=== PATIENT | male | born 1960 | race Two or more races ===

== ENCOUNTER 2025-02-19 08:12 | Emergency (ER) | payer MEDICAID, SELFPAY ==
[2025-02-19 08:29] VITALS: BP 138/84; PULSE 74; RESP 16; TEMP 36.9; O2SAT 95; BMI 36.0
--- NOTE | 2025-02-19 08:36 | XR_ITS ---
Examination: Abdomen sonogram, Limited Date and time of exam: February 19, 2025 0858 hours INDICATIONS: Right upper abdominal pain beginning 2 days ago Technique: Real-time booth scale transabdominal sonographic images of the upper abdomen obtained. Findings: Absent gallbladder Common bile duct 0.28 cm Pancreas obscured by bowel gas Liver 18.8 cm fatty infiltration Normal hepatopedal portal venous flow Patent IVC Right renal cyst 37 mm IMPRESSION: Absent gallbladder Normal common bile duct Moderate hepatomegaly, fatty liver
--- NOTE | 2025-02-19 08:37 | PD.EDRME ---
Rapid Medical Screening Exam RME Arrival date/time: 02/19/25 08:12 64-year-old male with no known medical history presents to the emergency room with a chief complaint of right upper quadrant abdominal pain and tenderness x 3 days I have greeted and performed a focused initial assessment of this patient. A comprehensive ED assessment and evaluation of the patient, analysis of all test results, and completion of the medical decision making process will be conducted by additional ED providers. Chief Complaint: Abdominal Pain Time Seen by Provider: 02/19/25 08:13 Vital signs: Vital Signs Temperature 98.4 F 02/19/25 08:29 Pulse Rate 74 02/19/25 08:29 Respiratory Rate 16 02/19/25 08:29 Blood Pressure 138/84 H 02/19/25 08:29 Pulse Oximetry (%) 95 02/19/25 08:29 Oxygen Delivery Method Room Air 02/19/25 08:29 Vital signs reviewed by provider: Yes
[2025-02-19] MEDS: HYDROcodone/APAP 5/325 TABLET 1 TAB PO (08:49)
[2025-02-19] MEDS: MG HYD/AL HYD/SIME (Maalox Reg) SUSP 30 ML UDC PO (08:49)
[2025-02-19 09:01] LABS: Collection Type, Urine Clean Catch
[2025-02-19 09:16] LABS: Bacteria,Urine Rare; Bilirubin,Urine Negative (Negative); Blood,Urine Negative (Negative); Clarity,Urine Clear (Clear/Hazy); Color,Urine Yellow (Lt Yel-Yel); Glucose, Urine Negative (Negative); Ketones,Urine Negative (Negative); Leukocyte Esterase,Urine Negative (Negative); Nitrite,Urine Negative (Negative); PH,Urine 5.5 (5.0-7.0); Protein,Urine Negative (Neg - Trace); RBC,Urine 5 /hpf (0-3); Specific Gravity,Urine 1.025 (1.001-1.035); Squamous Epithelial Cell,Urine 1 /hpf (0-5); Urobilinogen,Urine Negative mg/dL (0.0-1.0); WBC,Urine 1 /hpf (0-5)
[2025-02-19 10:22] LABS: Basophils % (Auto) 1 % (0-2.5); Eosinophils # (Auto) 0.2 Thou/mm3 (0.0-0.5); Eosinophils % (Auto) 4 % (0-10); Hematocrit 43.8 % (41.0-53.0); Hemoglobin 15.4 g/dL (13.5-16.0); Immature Granulocytes % (Auto) 0 % (0-0); Immature Granulocytes Auto 0.02 Thou/mm3 (0.00-0.00); Lymphocytes # (Auto) 1.7 Thou/mm3 (1.0-4.8); Lymphocytes % (Auto) 27 % (10-50); Mean Corpuscular HGB Conc 35.2 g/dl (31.0-37.0); Mean Corpuscular Hemoglobin 29.6 pg (25.0-35.0); Mean Corpuscular Volume 84 fL (80-100); Monocytes # (Auto) 0.6 Thou/mm3 (0.0-0.8); Monocytes % (Auto) 9 % (0-12); Neutrophils # (Auto) 3.8 Thou/mm3 (1.8-7.7); Neutrophils % (Auto) 60 % (37-80); Nucleated Red Blood Cell % 0 /100 WBC (0); Platelet Count 266 Thou/mm3 (140-440); RDW Standard Deviation 42.7 fL (35.1-43.9); Red Blood Count 5.21 Miln/mm3 (4.50-5.90); White Blood Count 6.4 Thou/mm3 (3.8-10.6)
[2025-02-19 10:41] LABS: Alanine Aminotransferase 40 U/L (10-49); Albumin, Serum 4.5 gm/dL (3.4-4.8); Albumin/Globulin Ratio 1.7 (1.2-2.2); Alkaline Phosphatase 94 U/L (46-116); Anion Gap 10 (7-16); Aspartate Amino Transferase 22 U/L (0-34); BUN/Creatinine Ratio 10 Ratio (12-20); Bilirubin,Total 0.6 mg/dL (0.3-1.2); Blood Urea Nitrogen 10 mg/dL (9-23); Calcium 8.9 mg/dL (8.3-10.6); Calcium (Corrected) 8.9 mg/dL (8.5-10.1); Carbon Dioxide 27.1 mMol/L (20.0-31.0); Chloride 103 mMol/L (98-107); Estimated Creatinine Clearance 105.8 mL/min (>60); Globulin 2.6 gm/dL (2.3-3.5); Glucose 197 mg/dL (74-106); Lipase 47 U/L (12-53); Osmolality,Calculated 283 (275-295); Potassium 4.1 mMol/L (3.4-5.1); Sodium 140 mMol/L (136-145); Total Protein 7.1 gm/dL (5.7-8.2); eGFR > 60 See Note
[2025-02-19 11:02] VITALS: BP 131/92; PULSE 66; RESP 17; TEMP 36.8; O2SAT 97
--- NOTE | 2025-02-19 11:56 | XR_ITS ---
Examination: CT abdomen with intravenous contrast CT pelvis with intravenous contrast 2-D coronal reconstructions 2-D sagittal reconstructions Date and time of exam:February 19, 2025 1514 hours INDICATIONS: Onset right lower abdominal pain beginning 2 days ago. CTDI: vol (mGy) 18.7 DLP: (mGycm) 1367 Technique: Multiple axial sections of the abdomen and pelvis have been obtained. 64 slice high-resolution scanner used. 3 mm axial sections have been obtained, post intravenous injection 60 cc [id number] 2-D sagittal, coronal reconstructions obtained. Low dose protocols were performed. One or more of the following dose reduction techniques were used; automated exposure control, adjustment of the mA and/or KV according to patient size, use of iterative reconstruction technique. Findings: No focal liver or splenic lesions Absent gallbladder No pancreatic or adrenal mass 5.4 cm left renal cyst No renal or ureteral calculi, 4 cm right renal cyst Aorta normal size Normal appendix No bowel obstruction No significant prostatomegaly No bladder mass or bladder calculi Moderate osteopenia IMPRESSION: Bilateral benign renal cyst Normal appendix No bowel obstruction diverticulitis or free air
[2025-02-19 12:09] VITALS: BP 135/95; PULSE 71; RESP 20; TEMP 36.7; O2SAT 97
[2025-02-19] MEDS: ONDANSETRON INJ 2 MG/ML INJ 2 ML 4 MG IVP (12:23)
[2025-02-19] MEDS: SODIUM CHLORIDE 0.9% 1000 ML 1,000 ML 999 ML IV (12:25)
[2025-02-19] MEDS: MORPHINE SULF INJ 10 MG/ML VIAL 4 MG IVP (12:26)
[2025-02-19 14:00] VITALS: BP 146/108; PULSE 71; RESP 20; TEMP 36.8; O2SAT 95
--- NOTE | 2025-02-19 14:51 | PD.EDABDPN ---
ED Abdominal Pain RME/HPI General Chief Complaint: Abdominal Pain Stated complaint: ABD PAIN Time seen by provider: 02/19/25 08:13 Arrival date/time: 02/19/25 08:12 Limitations: no limitations RME / HPI RME / HPI narrative: 02/19/25 08:12 64-year-old male with no known medical history presents to the emergency room with a chief complaint of right upper quadrant abdominal pain and tenderness x 3 days I have greeted and performed a focused initial assessment of this patient. A comprehensive ED assessment and evaluation of the patient, analysis of all test results, and completion of the medical decision making process will be conducted by additional ED providers. DR. JACOBSON MAIN ED EVALUATION: 64 year old male with history of diabetes presents to the ED with a 2 day history of abdominal pain. The pain is described as a dull, aching sensation localized primarily to the right side of the abdomen, without radiation. States pain is aggravated with movements and minimally improved with rest. Rating the pain as moderate in severity. The patient reports having eaten well yesterday but has not eaten today. He denies any prior episodes of similar pain. He also denies associated symptoms such as nausea, vomiting, changes in bowel habits or stool color, urinary symptoms, fever, chills, diaphoresis, shortness of breath, or leg pain or weakness. Related Data Previous Rx's ?Medication ?Instructions ?Recorded cyclobenzaprine 5 mg tablet 5 mg PO Q12H #10 tabs 09/16/20 ibuprofen 800 mg tablet 800 mg PO Q8H PRN pain #10 tabs 09/16/20 lactulose 10 gram/15 mL oral 10 g (15 mL) PO QDAY PRN 10/26/23 solution constipation #237 mL Allergies Allergy/AdvReac Type Severity Reaction Status Date / Time No Known Allergies Allergy Verified 09/16/20 15:41 Review of Systems Review of Systems Narrative Review of Systems: GEN: No fever, no chills EYES: No discharge, no pain HEENT: No ear pain, no congestion, no sore throat PULM: No shortness of breath, no cough, no congestion CV: No chest pain, no palpitations GI: No nausea, no vomiting, no diarrhea, + pain, no constipation : No frequency, no urgency, no dysuria MUSC/SKEL: No joint pain, no back pain SKIN: No rash NEURO: No weakness, no headache Past Medical History Past Medical History CARDIAC: Negative Cardiac Disorders or Congestive Heart Failure RESPIRATORY: Negative Chronic Obstructive Pulmonary Disease (COPD) or Asthma GENITOURINARY: Negative Renal Disease ENDOCRINE: Positive Diabetes Mellitus Type 2; Negative Diabetes Mellitus Type 1 HEMATOLOGIC: Negative Sickle Cell Disease Social History SMOKING STATUS: Current some day smoker ED Exam General Limitations: Present no limitations General appearance: Present alert and in no apparent distress Head Head exam: Present atraumatic, normocephalic and normal inspection Eye Eye exam: Present normal appearance, PERRL and EOMI ENT ENT exam: Present normal exam, normal oropharynx and mucous membranes moist Neck Neck exam: Present normal inspection, full ROM and trachea midline Chest Chest inspection: Present normal inspection and symmetric chest wall rise Respiratory Respiratory exam: Present normal lung sounds bilaterally Cardiovascular Cardiovascular exam: Present regular rate, normal rhythm and normal heart sounds Abdominal Exam Abdominal exam: Present soft and normal bowel sounds Extremities Exam Extremities exam: Present normal inspection and full ROM Back Exam Back exam: Present normal inspection and full ROM Neurological Exam Neurological exam: Present alert, oriented X3 and CN II-XII intact Psychiatric Psychiatric exam: Present normal affect and normal mood Skin Skin exam: Present warm, dry, intact and normal color Course Quality Measures none Orders Category Date Time Status CT Screening NOW Care 02/19/25 11:[address] Screening X1 Care 02/19/25 11:[address] abdomen pelvis w con Stat Exams 02/19/25 11:56 Completed US gall bladder Stat Exams 02/19/25 08:36 Completed Blood Culture (Lab) Stat Lab 02/19/25 12:25 Received CBC Stat Lab 02/19/25 09:45 Completed CMP [Comprehensive Metabolic Panel] Stat Lab 02/19/25 09:45 Completed Lactic Acid [Lactate (Lactic Acid)] Stat Lab 02/19/25 12:10 Completed Lipase Stat Lab 02/19/25 09:45 Completed UA [Urinalysis] Stat Lab 02/19/25 08:48 Completed Urine Culture Stat Lab 02/19/25 08:48 Received HYDROcodone*/APAP 5/325 [[place] 5/325] Med 02/19/25 08:36 Discontinued 1 tab PO X1 ONE Morphine Inj Med 02/19/25 11:56 Discontinued 4 mg IM X1 ONE Morphine Inj Med 02/19/25 12:06 Discontinued 4 mg IVP X1 ONE Ondansetron Inj [Zofran Inj] Med 02/19/25 11:56 Discontinued 4 mg IVP X1 ONE Sodium Chloride 0.9% 1000 ml [Ns] 1,000 ml Med 02/19/25 11:56 Discontinued IV 999 mls/hr mg Hyd/Al Hyd/Bettye Susp [Maalox Susp] Med 02/19/25 08:36 Discontinued 30 ml PO X1 ONE Vital Signs Vital signs: Vital Signs Temperature 98.4 F 02/19/25 08:29 Pulse Rate 74 02/19/25 08:29 Respiratory Rate 16 02/19/25 08:29 Blood Pressure 138/84 H 02/19/25 08:29 Pulse Oximetry (%) 95 02/19/25 08:29 Oxygen Delivery Method Room Air 02/19/25 08:29 Pulse ox is 95% on room air which is adequate. Abdominal Pain MDM MDM Narrative MDM Narrative:: Darlene Ho am scribing for and in the presence of Dr. Jacobson. Patient remains clinically stable throughout the emergency department visit. We reviewed all the results, analysis, and treatment plans. Patient is amenable to discharge. Strict return precautions were outlined. Patient was discharged in stable condition. Patient data External records reviewed:: [facility] previous records (I reviewed ED visit on 10/26/2023 for abdominal pain ) Clinical information provided by:: patient Social determinants that could affect healthcare access:: none Patient has the following chronic illnesses:: diabetes How is presenting disease/condition affected by chronic disease/condition?: uneffected by Evaluation data The following diagnostics were reviewed and interpreted by me:: lab results and radiology exam(s) Lab and/or radiology exams considered but not ordered:: None Interpretation Summary: Ordering Physician: Augusto Carlson Date of Service: 02/19/25 Procedure(s): US gall bladder Accession Number(s): [id number] cc: Augusto Carlson; Chin Wahl MD; NO PRIMARY/FAMILY,PHYSICIAN~ Examination: Abdomen sonogram, Limited Date and time of exam: February 19, 2025 0858 hours INDICATIONS: Right upper abdominal pain beginning 2 days ago Technique: Real-time booth scale transabdominal sonographic images of the upper abdomen obtained. Findings: Absent gallbladder Common bile duct 0.28 cm Pancreas obscured by bowel gas Liver 18.8 cm fatty infiltration Normal hepatopedal portal venous flow Patent IVC Right renal cyst 37 mm IMPRESSION: Absent gallbladder Normal common bile duct Moderate hepatomegaly, fatty liver Dictated By: Chin Wahl MD Signed By: <Electronically signed by Chin Wahl MD in [place]> 02/19/25 1117 Ordering Physician: Tyrell Jacobson MD Date of Service: 02/19/25 Procedure(s): CT abdomen pelvis w con Accession Number(s): [id number] cc: Tyrell Jacobson MD; Chin Wahl MD; NO PRIMARY/FAMILY,PHYSICIAN~ Examination: CT abdomen with intravenous contrast CT pelvis with intravenous contrast 2-D coronal reconstructions 2-D sagittal reconstructions Date and time of exam:February 19, 2025 1514 hours INDICATIONS: Onset right lower abdominal pain beginning 2 days ago. CTDI: vol (mGy) 18.7 DLP: (mGycm) 1367 Technique: Multiple axial sections of the abdomen and pelvis have been obtained. 64 slice high-resolution scanner used. 3 mm axial sections have been obtained, post intravenous injection 60 cc [id number] 2-D sagittal, coronal reconstructions obtained. Low dose protocols were performed. One or more of the following dose reduction techniques were used; automated exposure control, adjustment of the mA and/or KV according to patient size, use of iterative reconstruction technique. Findings: No focal liver or splenic lesions Absent gallbladder No pancreatic or adrenal mass 5.4 cm left renal cyst No renal or ureteral calculi, 4 cm right renal cyst Aorta normal size Normal appendix No bowel obstruction No significant prostatomegaly No bladder mass or bladder calculi Moderate osteopenia IMPRESSION: Bilateral benign renal cyst Normal appendix No bowel obstruction diverticulitis or free air Dictated By: Chin Wahl MD Signed By: <Electronically signed by Chin Wahl MD in [place]> 02/19/25 1533 Medications / Prescriptions Medications or Prescriptions considered but not ordered:: None Medication administrations:: Medication Administration History Discontinued Medications Hydrocodone Bitart/Acetaminophen (Hydrocodone/Apap 5/325 Tablet) 1 tab PO X1 ONE Stop: 02/19/25 08:37 Last Admin: 02/19/25 08:49 Dose: 1 tab Documented By: HUMBERTO Al Hydrox/Mg Hydrox/Simethicone (Mg Hyd/Al Hyd/Bettye (Maalox Reg) Susp 30 Ml Udc) 30 ml PO X1 ONE Stop: 02/19/25 08:37 Last Admin: 02/19/25 08:49 Dose: 30 ml Documented By: HUMBERTO Sodium Chloride (Ns) 1,000 mls @ 999 mls/hr IV .Q1H1M ONE Stop: 02/19/25 12:56 Last Infusion: 02/19/25 14:26 Dose: Infused Documented By: Admin: 02/19/25 12:25 Dose: 999 mls/hr Documented By: SAMI Morphine Sulfate (Morphine Sulf Inj 10 Mg/Ml Vial) 4 mg IM X1 ONE Stop: 02/19/25 11:57 Last Admin: 02/19/25 12:06 Dose: Not Given Documented By: SAMI Non-Admin Reason: Discontinued Morphine Sulfate (Morphine Sulf Inj 10 Mg/Ml Vial) 4 mg IVP X1 ONE Stop: 02/19/25 12:07 Last Admin: 02/19/25 12:26 Dose: 4 mg Documented By: SAMI Ondansetron HCl (Ondansetron Inj 2 Mg/Ml Inj 2 Ml) 4 mg IVP X1 ONE; Protocol Stop: 02/19/25 11:57 Last Admin: 02/19/25 12:23 Dose: 4 mg Documented By: SAMI See above Diagnosis Differential diagnosis abdominal pain: abdominal pain, calculus of kidney, constipation and diverticulitis Most likely diagnosis given after review of the tests above:: Abdominal pain Admission Indicated Admission indicated?: not indicated Admission Request Was there a request for admission?: No Disposition Plan Disposition Plan: Discharge Discharge Attestation Discharge Attestation: The patient and all family members were given an opportunity to ask questions and understood the discharge instructions. Discharge instructions specifically effects, indications for sooner follow up or return to the emergency department, and the expected course of current diagnosis. Patient condition: Stable Discharge Plan Plan Patient Disposition: HOME (Self Care) Prescriptions/Referrals Prescriptions/Med Rec: No Action ibuprofen 800 mg tablet 800 mg PO Q8H PRN (Reason: pain) Qty: 10 0RF cyclobenzaprine 5 mg tablet 5 mg PO Q12H Qty: 10 0RF lactulose 10 gram/15 mL solution 10 g PO QDAY PRN (Reason: constipation) Qty: 237 0RF Referrals: No Primary/Family,Physician [Primary Care Provider] - In 1 week Problem List Clinical Impression: Abdominal pain Patient/Caregiver Discharge Instructions Education Materials: ED Pain, Acute, Uncertain Cause Additional Instructions: Follow-up with your primary care doctor in 3 to 5 days for recheck. You can return to the emergency department sooner if symptoms worsen or if you notice any new, concerning issues. Print Language: [place] Stand Alone Forms: Kimberlyn Award Info., Patient Portal Info Letter
[2025-02-19 16:27] VITALS: BP 149/92; PULSE 73; RESP 18; TEMP 37.1; O2SAT 95
== END 2025-02-19 16:56 | disposition home or self-care (01) ==
PROVIDERS: Nurse Practitioner Family; Emergency Provider Family Medicine
DX: K76.0 Fatty (change of) liver, not elsewhere classified (principal); N28.1 Cyst of kidney, acquired
CPT/HCPCS: 36415; 74177; 76705; 80053; 81001; 83605; 83690; 85025; 87040; 87086; 96361; 96374; 96375; 99285; A4649; J2270; J2405; J7030; Q9967; A9270